=== PATIENT | male | born 1990 | race Caucasian/White ===

== ENCOUNTER 2017-07-01 09:44 | Emergency (ER) | payer OTHER ==
[~2017-07-01] VITALS: Ht 182.9 cm; Wt 82.6 kg
[~2017-07-01 09:44] MED LIST: PREDNISONE10 MG PO; VENTOLIN H0.09 MG/Ac INH
--- NOTE | 2017-07-01 10:48 | RADIOLOGY REPORT ---
EXAMINATION: XR WRIST, LEFT CLINICAL INFORMATION: Wrist pain, sprain. COMPARISON: There are no prior studies for comparison. TECHNIQUE: PA, lateral, oblique and scaphoid-navicular views of the of the left wrist. FINDINGS: A marker is placed over the lateral aspect of the ulnar radial joint. In the local region, there are no cortical defects noted to suggest acute fracture. The bony structures are within normal limits throughout with no cortical defects noted. Mild soft tissue swelling is noted over the dorsum at the level of the radiocarpal joint. There is no evidence of a wrist joint effusion on the lateral view. The scaphoid navicular view shows no significant scapholunate navicular joint space widening. The bony alignment is within normal limits including the radiocarpal intercarpal and carpometacarpal alignment. There is negative ulnar variance. IMPRESSION: No radiographic evidence of acute fracture or subluxation is present at this time.
--- NOTE | 2017-07-01 11:35 | ED HAND/WRIST INJURY COMPLAINT ---
History of Present Illness General Chief Complaint: Hand or Wrist Injury Stated Complaint: L WRIST PAIN Source: patient Exam Limitations: no limitations Vital Signs & Intake/Output Vital Signs & Intake/Output Vital Signs Date Time Temp Pulse Resp B/P B/P Pulse O2 O2 Flow FiO2 Mean Ox Delivery Rate 07/01 1140 97.7 68 16 122/80 99 Room Air 07/01 1129 98 07/01 0955 97.3 66 20 132/79 98 Room Air Allergies Coded Allergies: NO KNOWN ALLERGIES (11/15/14) Reconcile Medications Ibuprofen 800 MG TABLET 1 TAB PO TID PRN pain Triage Note: LEFT WRIST PAIN X 3 WEEKS. 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 Triage Nurses Notes Reviewed? yes Occurred: 3 weeks Duration: week(s): (3), constant, continues in ED, getting worse Timing: single episode today Injury Environment: unknown Severity: moderate, severe Severity Numbers: 7 Pain/Injury Location: Left: Wrist. Method of Injury: unknown No Modifying Factors: none HPI: 27-year-old male past medical history presents for evaluation of pain in his left wrist. Patient states that he first noticed symptoms about 3 weeks ago and the pain has gotten worse. The pain is located on the ulnar aspect of the wrist and is worse with ulnar and radial deviation. It is only present with active range of motion. If he is not moving it does not hurt. There was no known trauma or triggering event. 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 He rates the pain as a 7 out of 10 and is not taking any medicine for it. No numbness or tingling. No swelling. No elbow pain or hand pain. No other joint pains. (Will Nieto) Past History Travel History Traveled to [place] past 21 day No Medical History Any Pertinent Medical History? 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 No (Will Nieto) Review of Systems Review of Systems Constitutional: Reports: no symptoms. EENTM: Reports: no symptoms. Respiratory: Reports: no symptoms. Cardiovascular: Reports: no symptoms. GI: Reports: no symptoms. Genitourinary: Reports: no symptoms. Musculoskeletal: Reports: joint pain, joint swelling, muscle pain, muscle stiffness. Skin: Reports: no symptoms. Neurological/Psychological: Reports: no symptoms. Hematologic/Endocrine: Reports: no symptoms. Immunologic/Allergic: Reports: no symptoms. All Other Systems: Reviewed and Negative (Will Nieto) Physical Exam Physical Exam General Appearance: well developed/nourished, no apparent distress, alert, awake Head: atraumatic, normal appearance Eyes: Bilateral: normal appearance. Ears, Nose, Throat: hearing grossly normal Neck: normal inspection Cardiovascular/Respiratory: no respiratory distress Back: normal inspection, normal range of motion Shoulder Left: normal range of motion, normal inspection Shoulder Right: normal range of motion, normal inspection Elbow Left: normal range of motion, normal inspection Elbow Right: normal range of motion, normal inspection Forearm Left: normal range of motion, normal inspection Forearm Right: normal range of motion, normal inspection Wrist Left: normal range of motion, normal inspection, pain, soft tissue tenderness, ulnar aspect of the wrist. No swelling erythema or bruising. Full range of motion of the wrist is intact. Pain with ulnar deviation and radial deviation. Strength is 5 out of 5. Neurovascular supply is intact to the wrist. No snuffbox tenderness. Wrist Right: normal range of motion, normal inspection Hand Left: normal inspection, normal range of motion, environmental services coordinator strength 5 out of 5 Hand Right: normal inspection, normal range of motion, environmental services coordinator 5/5 Neurologic/Tendon: normal sensation, normal motor functions, normal tendon functions, responds to pain, no evidence tendon injury Skin: intact, normal color, warm/dry (Will Nieto) Progress Differential Diagnosis: cellulitis, contusion, dislocation, fracture, gout, sprain, tenosynovitis Plan of Care: Orders Procedure Date/time Status Durable Medical Equipment 07/01 1134 Active Seen and evaluated. He has had pain on the ulnar aspect of his wrist for the past 3 weeks. There was no trauma or known triggering event the patient does do a lot of heavy lifting at his job. Pain is only present on active range of motion. There is no swelling erythema or bruising. His strength is 5 out of 5. Suspect tendinitis versus sprain. Patient was placed into a volar splint. Rest ice elevation compression. Ibuprofen 800 mg every 8 hours. Referred to orthopedics. Discussed return precautions in detail patient is nontoxic appearing agrees the plan. Diagnostic Imaging: Viewed by Me: Radiology Read. Discussed w/RAD: Radiology Read. Radiology Impression: PATIENT: ANASTASIA JOHNSON PRESENT AGE: 27 PATIENT ACCOUNT NO: [id number] : 88 LOCATION: [facility] ORDERING PHYSICIAN: Vishnu Summers DO (TBS) SERVICE DATE: 07/01/17 EXAM TYPE: RAD - XRY-WRIST COMPLETE-LEFT EXAMINATION: XR WRIST, LEFT CLINICAL INFORMATION: Wrist pain, sprain. COMPARISON: There are no prior studies for comparison. TECHNIQUE: PA, lateral, oblique and scaphoid-navicular views of the of the left wrist. FINDINGS: A marker is placed over the lateral aspect of the ulnar radial joint. In the local region, there are no cortical defects noted to suggest acute fracture. The bony structures are within normal limits throughout with no cortical defects noted. Mild soft tissue swelling is noted over the dorsum at the level of the radiocarpal joint. There is no evidence of a wrist joint effusion on the lateral view. The scaphoid navicular view shows no significant scapholunate navicular joint space widening. The bony alignment is within normal limits including the radiocarpal intercarpal and carpometacarpal alignment. There is negative ulnar variance. IMPRESSION: No radiographic evidence of acute fracture or subluxation is present at this time. DICTATED BY: Maranda Lopez MD DATE/TIME DICTATED:07/01/171041 BAR MANAGER:RADHA DATE/ TIME TRANSCRIBED:07/01/171041 CONFIDENTIAL, DO NOT COPY WITHOUT APPROPRIATE AUTHORIZATION. (Will Nieto) Departure Departure Disposition: HOME OR SELF CARE Condition: Stable Clinical Impression Primary Impression: Left wrist pain Referrals: Patient Has No Primary Care Dr (PCP/Family) Donny ABRAHAM,Stephon Nino Additional Instructions: rest, avoid excessive movement of the wrist. wear splint. apply ice for 15-20 min every few hours. ibuprofen 800mg every 8 hours with food as needed for pain. make a follow up with provided ortho doctor as soon as possible. moniotr your symptoms if you have worsening pain, redness, swelling, or any other concerns return to the [facility] department. Departure Forms: Customer Survey General Discharge Information Prescriptions: Current Visit Scripts Ibuprofen 1 TAB PO TID PRN pain #30 TAB (Will Nieto) PA/SEAT SCOOPER MACHINE Co-Sign Statement Statement: ED Attending supervision documentation- I saw and evaluated the patient. I have also reviewed all the pertinent lab results and diagnostic results. I agree with the findings and the plan of care as documented in the PA's/SEAT SCOOPER MACHINE's documentation. x I have reviewed the ED Record and agree with the PA's/SEAT SCOOPER MACHINE's documentation. [] Additions or exceptions (if any) to the PAs/SEAT SCOOPER MACHINE's note and plan are summarized below: [] (Maria Esther ABRAHAM,Hector)
[2017-07-01] MEDS ORDERED: IBUPROFEN800 M1 PO (11:37)
[2017-07-01 11:40] VITALS: BP 122/80
== END 2017-07-01 11:40 ==
LOC: ERH 09:44
DX: M25.532 Pain in left wrist (principal)
CPT/HCPCS: 73110-LT